=== PATIENT | male | born 1985 | race Caucasian/White ===

== ENCOUNTER → 2020-06-29 12:08 | Outpatient (BNVA) | payer BC, SELFPAY | PROVIDERS: Visit Provider Nurse Practitioner Family | DX: Z20.828 Contact with and (suspected) exposure to other viral communicable diseases (principal); J06.9 Acute upper respiratory infection, unspecified | CPT/HCPCS: 87635 ==

== ENCOUNTER → 2020-07-15 16:49 | Outpatient (BNVA) | payer BC, SELFPAY | PROVIDERS: Visit Provider Nurse Practitioner | DX: J06.9 Acute upper respiratory infection, unspecified (principal) | CPT/HCPCS: 87071; 87880 ==

== ENCOUNTER → 2020-08-02 13:47 | Outpatient (BNVA) | payer BC, SELFPAY | PROVIDERS: Visit Provider Nurse Practitioner Family | DX: R10.33 Periumbilical pain (principal); R10.32 Left lower quadrant pain; E11.9 Type 2 diabetes mellitus without complications; R53.83 Other fatigue; E78.5 Hyperlipidemia, unspecified; I10 Essential (primary) hypertension | CPT/HCPCS: 80053; 80061; 83036; 85025 ==

== ENCOUNTER 2020-10-20 05:49 | Emergency (ER) | payer BC, SELFPAY ==
[2020-10-20 05:53] VITALS: BP 145/101; PULSE 90; RESP 18; TEMP 36.7; O2SAT 100; BMI 27.2
--- NOTE | 2020-10-20 06:12 | ED_ITS ---
HPI - Dental/Oral General: Chief complaint: Dental/Oral Stated complaint: HEADACHE/ORAL PAIN Time Seen by Provider: 10/20/20 06:08 History of Present Illness: HPI Narrative: This patient is a 34 year old male presenting with toothache. He has pain in the right upper canine that radiates to his eye and head on that side. The pain has been constant and severe since last night - and he had had some pain off and on involving that tooth for a while. MD Complaint: tooth pain Location: Tooth # (5) Onset (ago): hour(s) (12) Duration: constant Severity: severe Relieving factors: nothing Exacerbating factors: nothing Context: history of dental caries Associated symptoms: Denies ear or mastoid pain, fever(s), gum swelling, odynophagia, sore throat or tongue swelling Treatment prior to arrival: oral analgesic Review of Systems Const: Denies: fever(s) ENMT: Reports: dental pain; Denies: odynophagia or ear or mastoid pain Neuro: Reports: headache(s) All/Imm: Denies: tongue swelling [facility] ED PFSH: Medical History (Updated 10/20/20 @ 06:20 by Monik Mcbride MD) Hypertension Family History Other CAD (coronary artery disease) Clotting disorder Diabetes Hypertension Social History Smoking and tobacco status: never smoked Alcohol intake: never History of recent travel: No Physical Exam Const: COMMON NORMALS: no acute distress, patient oriented x3, no limitations and alert GENERAL APPEARANCE: cooperative and comfortable HENMT: HEAD & SCALP: normal to inspection FACE & SINUS: normal facial exam and sinus tenderness maxillary (right) MOUTH: Normal oral and palatal mucosa present, lip normal and tongue normal TEETH & GINGIVA: Yes caries (multiple caries, edentulous teeth 6 - 11) Eye: GENERAL EYE: appearance normal, both eyes and all related structures Neck/C-Spine: COMMON NORMALS: supple, no meningeal signs and no JVD Resp: COMMON NORMALS: normal respiratory effort Cardio: COMMON NORMALS: no JVD Extremity: COMMON NORMALS: normal to inspection Neuro: COMMON NORMALS: patient oriented x3, moves all extremities, no focal mo tor deficits and no sensory deficits noted SENSORIUM/ORIENTATION: Yes alert MENINGEAL SIGNS: Yes no meningeal signs Psych: COMMON NORMALS: mental status grossly normal, cooperative and normal affect Skin: COMMON NORMALS: no rashes or lesions noted and turgor normal GENERAL SKIN EXAM: no rashes or lesions noted and turgor normal Course Vital Signs: Vital signs: Vital Signs Temperature 98.1 F 10/20/20 05:53 Pulse Rate 90 10/20/20 05:53 Respiratory Rate 18 10/20/20 05:53 Blood Pressure 145/101 10/20/20 05:53 Pulse Oximetry 100 10/20/20 05:53 MDM - Dental/Oral MDM Narrative: Medical decision making narrative: Dental pain, sinus pain and headache - pain control, antibiotics, dental follow up Discharge Plan Discharge Patient Disposition: Home Clinical Impression: Toothache, Dental caries Condition: Stable Prescriptions: New amoxicillin 875 mg tablet 875 mg PO BID Qty: 20 RF: 0 hydrocodone-acetaminophen 5-325 mg tablet 1 tab PO Q6H PRN (Reason: pain) Qty: 7 RF: 0 No Action losartan 25 mg tablet 25 mg PO DAILY Qty: 90 RF: 3 Discharge Orders: Discharge ED (Routine); Ordered 10/20/20 Ordered By: Monik Mcbride Referrals: Ruiz Sales [Primary Care Provider] - Discharge Diet: Usual diet Discharge Activity: Resume usual activity Patient Instructions: Dental Abscess (ED), Opioid Safety Activity Restrictions/Additional Instructions: Use the pain medication only as needed. Take the antibiotic exactly as prescribed. Follow up with a dentist within a week. Coding Level of Care Code ED Appeals Coordinator for Hector Cooley
[2020-10-20] MEDS: HYDROcodone-acetaminophen 5-325 mg Tablet 1 TAB PO (06:21)
[2020-10-20 06:25] VITALS: BP 118/99; PULSE 70; RESP 18; O2SAT 98
== END 2020-10-20 06:26 | disposition home or self-care (01) ==
PROVIDERS: Emergency Provider Emergency Medicine; PCP Family Medicine
DX: K02.9 Dental caries, unspecified (principal); I10 Essential (primary) hypertension
CPT/HCPCS: 99283

== ENCOUNTER → 2021-09-19 15:59 | Outpatient (BNVA) | payer BC, SELFPAY | PROVIDERS: PCP Family Medicine; Visit Provider Nurse Practitioner Family | DX: Z00.00 Encounter for general adult medical examination without abnormal findings (principal); I10 Essential (primary) hypertension | CPT/HCPCS: 80053; 80061; 81000; 84443; 84481; 85025 ==

== ENCOUNTER → 2023-01-07 14:29 | Outpatient (BNVA) | payer BC, SELFPAY | PROVIDERS: PCP Registered Nurse; Visit Provider Registered Nurse | DX: N39.0 Urinary tract infection, site not specified (principal); I10 Essential (primary) hypertension; R39.9 Unspecified symptoms and signs involving the genitourinary system | CPT/HCPCS: 81000 ==

== ENCOUNTER 2023-04-25 09:44 | Outpatient (CLI) | payer BC, SELFPAY ==
--- NOTE | 2023-04-25 09:56 | XR_ITS ---
WS: [id number] CHEST 2 VIEWS HISTORY: R06.02 - Shortness of breath COMPARISON: None available. Lungs: Clear with no abnormality. No pleural effusion or pneumothorax. Cardiac size: Normal. Mediastinum/Aorta: Normal mediastinum. Bones: Normal. IMPRESSION: Normal chest.
== END 2023-04-25 09:45 | disposition home or self-care (01) ==
PROVIDERS: PCP Registered Nurse; Visit Provider Registered Nurse
DX: R06.02 Shortness of breath (principal)
CPT/HCPCS: 71046

== ENCOUNTER → 2025-03-23 13:35 | Outpatient (BNVA) | payer OTHER, SELFPAY | PROVIDERS: PCP Nurse Practitioner Family; Visit Provider Nurse Practitioner Family | DX: I10 Essential (primary) hypertension (principal) | CPT/HCPCS: 80053; 80061; 82607; 84443; 85025 ==

== ENCOUNTER → 2025-03-31 10:14 | Outpatient (BNVA) | payer OTHER, SELFPAY | PROVIDERS: PCP Nurse Practitioner Family; Visit Provider Nurse Practitioner Family | DX: R73.09 Other abnormal glucose (principal); R79.89 Other specified abnormal findings of blood chemistry | CPT/HCPCS: 80053; 83036; 85025 ==

== ENCOUNTER 2025-04-14 09:19 | Outpatient (CLI) | payer OTHER, SELFPAY ==
--- NOTE | 2025-04-14 09:15 | US_ITS ---
WS: [id number] RIGHT UPPER QUADRANT ULTRASOUND HISTORY: Elevated LFTs. COMPARISON: None available. Liver: 16.0 cm in length. Normal size liver. Moderate coarse echotexture throughout the liver, hepatic steatosis. Not all areas of the liver are included due to attenuation. Portal Vein: Normal hepatopetal flow with monophasic waveform. Gallbladder: Normally distended gallbladder with no stones or wall thickening. CBD: 0.4 cm Pancreas: Echogenic pancreas. Right kidney: 10.5 cm in length. Normal size and echogenicity. No hydronephrosis or mass. Aorta and IVC: Unremarkable abdominal aorta and IVC. No ascites. US/US liver [id number] IMPRESSION: 1. Normal size liver with changes of hepatic steatosis. 2. Normal gallbladder. 3. Fatty replacement of the pancreas.
== END 2025-04-14 09:20 | disposition home or self-care (01) ==
LOC: RAD 09:20
PROVIDERS: PCP Nurse Practitioner Family; Visit Provider Nurse Practitioner Family
DX: R79.89 Other specified abnormal findings of blood chemistry (principal)
CPT/HCPCS: 76705